=== PATIENT | male | born 1975 | race Hispanic/Latino ===

== ENCOUNTER 2017-10-12 00:37 | Inpatient (IN) | payer MEDICAID, OTHER ==
[2017-10-12 00:41] VITALS: BMI 22.2
--- NOTE | 2017-10-12 01:00 | ED PDOC ---
Arrival/HPI - General Chief Complaint: Medical Clearance Time Seen by Provider: 10/12/17 00:39 Historian: Patient - History of Present Illness Narrative History of Present Illness (Text): 10/12/17 00:54 This 41 yo male with a pmh depression, and substance abuse, presents to this ED by BLS from [facility] for admission to Psychiatric floor. Patient stated he was seen at [facility] for depression x 1 month. Patient admits having suicidal ideation since early today, without a plan. Patient denies hallucination, paranoia, HI, sob, cp, abdominal pain, urinary symptoms, or abnormal gait. Time/Duration: Other (see hpi) Context: Home Past Medical History - Provider Review Nursing Documentation Reviewed: Yes - Psychiatric Hx Substance Use: Yes Family/Social History - Physician Review Nursing Documentation Reviewed: Yes Family/Social History: Other (noncontributory) Smoking Status: y Hx Alcohol Use: Yes Hx Substance Use: Yes Substance used: Cocaine Allergies/Home Meds Allergies/Adverse Reactions: Allergies No Known Allergies Allergy (Verified 10/12/17 00:41) Review of Systems - Review of Systems Constitutional: Normal. absent: Fatigue, Weight Change, Fevers, Night Sweats Eyes: Normal ENT: Normal Respiratory: Normal Cardiovascular: Normal Gastrointestinal: Normal Genitourinary Male: Normal Musculoskeletal: Normal Skin: Normal Neurological: Normal Endocrine: Normal Hemo/Lymphatic: Normal Psychiatric: Depression, Suicidal Ideation Physical Exam Vital Signs Temp Pulse Resp BP Pulse Ox 10/12/17 00:42 98.0 F 87 18 130/80 98 Temperature: Afebrile Blood Pressure: Normal Pulse: Regular Respiratory Rate: Normal Appearance: Positive for: Well-Appearing, Non-Toxic, Comfortable Pain Distress: None Mental Status: Positive for: Alert and Oriented X 3 - Systems Exam Head: Present: Atraumatic, Normocephalic Pupils: Present: PERRL Extroacular Muscles: Present: EOMI Conjunctiva: Present: Normal Mouth: Present: Moist Mucous Membranes Neck: Present: Normal Range of Motion Respiratory/Chest: Present: Clear to Auscultation, Good Air Exchange. No: Respiratory Distress, Accessory Muscle Use Cardiovascular: Present: Regular Rate and Rhythm, Normal S1, S2. No: Murmurs Abdomen: Present: Normal Bowel Sounds. No: Tenderness, Distention, Peritoneal Signs Back: Present: Normal Inspection Upper Extremity: Present: Normal Inspection. No: Cyanosis, Edema Lower Extremity: Present: Normal Inspection. No: Edema Neurological: Present: GCS=15, CN II-XII Intact, Speech Normal Skin: Present: Warm, Dry, Normal Color. No: Rashes Psychiatric: Present: Alert, Oriented x 3, Depressed Mood, Suicidal Ideation Medical Decision Making ED Course and Treatment: 10/12/17 01:07 Dr. Riggs Psychiatry recommended to be transfer from [facility] to [facility] ED, to have patient admitted in the hospital for depression w/suicidal ideation. I reviewed copies of labs, and patient is medically clear for admission. Re-evaluation Time: 01:07 Reassessment Condition: Re-examined, Improving,but remains with symptoms Disposition/Present on Arrival - Present on Arrival Any Indicators Present on Arrival: No History of DVT/PE: No History of Uncontrolled Diabetes: No Urinary Catheter: No History of Decub. Ulcer: No History Surgical Site Infection Following: None - Disposition Have Diagnosis and Disposition been Completed?: Yes Diagnosis: Depression with suicidal ideation Disposition: HOSPITALIZED Disposition Time: 01:09 Patient Plan: Admission Condition: STABLE
[2017-10-12 01:56] VITALS: O2SAT 99
[2017-10-12] MEDS ORDERED: Alum-Mag Hydrox-Simethicone Susp (30 mL) PO PRN (02:51)
[2017-10-12] MEDS ORDERED: Magnesium Hydroxide Susp 30 ml UD PO PRN (02:51)
--- NOTE | 2017-10-12 03:32 | PCM.BM ---
<Laurent Baptiste - Last Filed: 10/12/17 03:29> Treatment Plan Problems - Problems identified on initial assessmt Ineffective Coping Date Initiated: 10/12/17 Time Initiated: 03:30 Assessment reference: NA Status: Active Hopelessness/Helplessness Date Initiated: 10/12/17 Time Initiated: 03:30 Assessment reference: NA Status: Active Feelings of Worthlessness Date Initiated: 10/12/17 Time Initiated: 03:30 Assessment reference: NA Status: Active Social Isolation Date Initiated: 10/12/17 Time Initiated: 03:31 Assessment reference: NA Status: Active Altered Sleep Patterns Date Initiated: 10/12/17 Time Initiated: 03:31 Assessment reference: NA Status: Active Treatment assets and liabiliti Patient Assests: adapts well, cooperative, self-reliant, ADL independent, physically healthy, negotiates basic needs, cognitively intact Patient Liabilities: financial problems, poor support system, relationship conflicts, substance abuse - Milieu Protocol Maintain good personal hygiene: daily Encourage regular showers, daily Remind patient to perform daily oral care, daily Assist patient to perform ADL's Conduct patient checks and document Observation sheet: Q15 minutes Maintain personal safety: every shift Educate patient to report safety concerns to staff, every shift Monitor environment for contraband/sharps Medication safety: Monitor for expected outcome, potential side effects: every shift, Assess barriers to learning: every shift, Assess readiness for medication education: every shift Discharge/Continuing Care - Education Needs Education Needs: Patient Medication, Patient Diagnosis/Disease Process, Patient Coping Skills, Patient Community resources, Patient Activities of Daily Living, Patient Nutrition, Patient Health Practices/Safety, Patient Personal Hygiene/ Grooming, Patient Aftercare Safety Plan - Discharge Discharge Criteria: Tolerates medication w/o severe side effects, Free of Suicidal thoughts, Free of agitation, Normal sleep pattern, Ability to care for self <Ree Riggs - Last Filed: 10/13/17 05:16> - Diagnosis (1) Depression with suicidal ideation Status: Acute Interventions: group, milieu and supportive tx Paxil 10 mg HS for depression and anxiety. Will not restart Wellbutrin due to patient's alcohol dependency both of which increase patient's risk of seizure Trazodone 50 mg HS (2) Alcohol dependence Status: Acute Interventions: Ativan 1 mg po q8 for alcohol withdrawal, hold if SBP <100. To discuss option of naltrexone and rehab with patient to help with alcohol abstinence. 10/13/17 05:18 10/13/17 05:18 10/13/17 05:19 (3) Cocaine abuse Status: Acute Interventions: To discuss option of naltrexone and rehab with patient to help with substance dependency issues. 10/13/17 05:19 <Melia Chowdhury - Last Filed: 10/15/17 08:14> Family Contact Family involvement: Famliy/SO not involved Family contact: Patient declines to allow family contact at present
[2017-10-12 08:19] LABS: GLUCOSE,FASTING 107 mg/dL (65-110); HDL CHOLESTEROL 57 mg/dL (29-60)
[2017-10-12 08:30] LABS: LDL CHOLESTEROL 41 mg/dL (0-129)
--- NOTE | 2017-10-12 10:10 | CP.PCM.CON ---
<Valeria Bullock - Last Filed: 10/12/17 10:22> History of Present Illness - History of Present Illness History of Present Illness: Valeria Bullock, PGY1, Medicine Consult Note for Dr Leos: CC: depression, suicidal ideation 41 year old male with PMH hepatitis C, alcohol/tobacco abuse, former IV drug user, presents for depression for past month. States that he has been feeling low, decreased appetite/concentration. He also was having suicidal ideations with no plan. He has previously had such episodes in the past. Denies cp, sob, headache, fever, chills, cough, abdominal pain, diarrhea/constipation, leg swelling, orthopnea. 12 point ROS obtained and neg, except as noted per HPI. PMH: Hepatitis C (contracted thru IV drug use) PSH: denies All: NKA Family Hx: denies SH: drinks 6 packs of beer every other day for many years. Smokes cigarettes 1 ppd x 30 years. + smokes cocaines. Prior IV drug user. Unemployed currently, supports himself thru his mom/brother. Review of Systems - Review of Systems All systems: reviewed and no additional remarkable complaints except Review of Systems: as per hpi Past Patient History - Past Social History Smoking Status: y - CARDIAC Hx Cardiac Disorders: No - PULMONARY Hx Respiratory Disorders: No - NEUROLOGICAL Hx Neurological Disorder: No - HEENT Hx HEENT Problems: No - RENAL Hx Chronic Kidney Disease: No - ENDOCRINE/METABOLIC Hx Endocrine Disorders: No - HEMATOLOGICAL/ONCOLOGICAL Hx Blood Disorders: No - INTEGUMENTARY Hx Dermatological Problems: No - MUSCULOSKELETAL/RHEUMATOLOGICAL Hx Musculoskeletal Disorders: No - GASTROINTESTINAL Hx Gastrointestinal Disorders: No - GENITOURINARY/GYNECOLOGICAL Hx Genitourinary Disorders: No - PSYCHIATRIC Hx Depression: Yes Hx Substance Use: Yes (Cocaine) - SURGICAL HISTORY Hx Surgeries: No - ANESTHESIA Hx Anesthesia: No Meds Allergies/Adverse Reactions: Allergies Allergy/AdvReac Type Severity Reaction Status Date / Time No Known Allergies Allergy Verified 10/12/17 02:56 - Medications Medications: Current Medications Acetaminophen (Tylenol 325mg Tab) 650 mg PO Q6H PRN PRN Reason: Pain, Mild (1-3) Al Hydrox/Mg Hydrox/Simethicone (Maalox Plus 30 Ml) 30 ml PO DAILY PRN PRN Reason: Upset Stomach Magnesium Hydroxide (Milk Of Magnesia) 30 ml PO DAILY PRN PRN Reason: Constipation Physical Exam - Constitutional Appears: Non-toxic, No Acute Distress - Head Exam Head Exam: ATRAUMATIC, NORMOCEPHALIC - Eye Exam Eye Exam: EOMI, PERRL. absent: Conjunctival injection, Nystagmus, Scleral icterus Pupil Exam: NORMAL ACCOMODATION, PERRL. absent: Fixed, Irregular, Unequal - ENT Exam ENT Exam: Mucous Membranes Moist - Neck Exam Neck exam: Positive for: Full Rom - Respiratory Exam Respiratory Exam: Clear to Auscultation Bilateral, NORMAL BREATHING PATTERN. absent: Accessory Muscle Use, Chest Wall Tenderness, Rales, Rhonchi, Wheezes, Stridor - Cardiovascular Exam Cardiovascular Exam: RRR, +S1, +S2. absent: Systolic Murmur - GI/Abdominal Exam GI & Abdominal Exam: Normal Bowel Sounds, Soft. absent: Diminished Bowel Sounds , Guarding, Hyperactive Bowel Sounds, Organomegaly, Rebound, Rigid, Tenderness - Extremities Exam Extremities exam: Positive for: normal inspection. Negative for: calf tenderness, pedal edema - Back Exam Back exam: NORMAL INSPECTION - Neurological Exam Neurological exam: Alert, Oriented x3 - Psychiatric Exam Psychiatric exam: Normal Affect, Normal Mood - Skin Skin Exam: Dry, Normal Color, Warm Results - Vital Signs Recent Vital Signs: Last Vital Signs Temp 97.6 F 10/12/17 02:05 Pulse 83 10/12/17 02:05 Resp 18 10/12/17 03:00 BP 136/95 H 10/12/17 02:05 Pulse Ox 99 10/12/17 01:55 - Labs Labs: Laboratory Results - last 24 hr 10/12/17 10/12/17 07:00 07:00 Fasting Glucose 107 Triglycerides 44 Cholesterol 114 L LDL Cholesterol Direct 41 HDL Cholesterol 57 TSH 3rd Generation 3.17 Assessment & Plan - Assessment and Plan (Free Text) Assessment: 41 year old male with PMH Hepatitis C, presents to [facility] for depression, suicidal ideation. Vitals stable, CBC, CMP, TSH reviewed. AST/ALT mildly elevated at 75/ 96 (from likely hepatitis C). UA neg for infection. UDS neg and etoh level low. Pt medically stable, can proceed with psychiatric management. Discussed with Dr Leos. - Date & Time Date: 10/12/17 Time: 10:10 <Vee Leos - Last Filed: 10/12/17 13:16> Meds - Medications Medications: Current Medications Acetaminophen (Tylenol 325mg Tab) 650 mg PO Q6H PRN PRN Reason: Pain, Mild (1-3) Al Hydrox/Mg Hydrox/Simethicone (Maalox Plus 30 Ml) 30 ml PO DAILY PRN PRN Reason: Upset Stomach Lorazepam (Ativan) 1 mg PO Q8 JOSE PRN Reason: Protocol Last Admin: 10/12/17 13:01 Dose: 1 mg Magnesium Hydroxide (Milk Of Magnesia) 30 ml PO DAILY PRN PRN Reason: Constipation Paroxetine HCl (Paxil) 10 mg PO HS JOSE Trazodone HCl (Desyrel) 50 mg PO HS JOSE Results - Vital Signs Recent Vital Signs: Last Vital Signs Temp 97.6 F 10/12/17 02:05 Pulse 83 10/12/17 02:05 Resp 18 10/12/17 03:00 BP 136/95 H 10/12/17 02:05 Pulse Ox 99 10/12/17 01:55 - Labs Labs: Laboratory Results - last 24 hr 10/12/17 10/12/17 10/12/17 07:00 07:00 07:00 Fasting Glucose 107 Triglycerides 44 Cholesterol 114 L LDL Cholesterol Direct 41 HDL Cholesterol 57 TSH 3rd Generation 3.17 RPR Nonreactive Attending/Attestation - Attestation I have personally seen and examined this patient.: Yes I have fully participated in the care of the patient.: Yes I have reviewed all pertinent clinical information: Yes Notes (Text): 10/12/17 13:12 Patient was seen and examined with medical technologist prn. Agreed with assessment and plan. 41 yrs old male with PMH of alcohol abuse, depression, drug abuse and Hepc is admitted with depression and suicidal ideation. Patient is stable at his bas line.We will sign off. Please call us back if any question. Issue of ongoing alcohol and drug abuse was discussed in detail . Management plan was discussed in detail with patient. Education was provided.
[2017-10-12] MEDS ORDERED: Potassium Chloride 10 mEq ER Tab PO STA (10:21)
--- NOTE | 2017-10-12 11:14 | PCM.PSYCH ---
Initial Psychiatric Evaluation - Initial Psychiatric Evaluation Type of Admission: Voluntary Chief Complaint (in patient's own words): depression History of Present Illness and Precipitating Events: Patient is a single 41 yo WM with history of depression, alcohol dependency (> 20 years), cocaine abuse, no reported prior psychiatric admissions, noncompliant with medications Wellbutrin and Trazodone x2 months, who was transferred from [facility] after he presented there requesting a psychiatric evaluation for depression. [facility] records indicate that patient has been depressed because of his continued alcohol and cocaine use, likely foreclosure of family home, lack of employment, uncles diagnosis of cancer, noncompliance with medications and conflict with family members about his lifestyle. I met with patient at bedside. His grooming is fair and he presents as alert and oriented x3. Affect is fairly reactive and responses are relevant to questioning. Patient confirms above aforementioned stressors. Endorses low mood , hopelessness, poor sleep, low energy, low frustration tolerance and anhedonia. Patient generally drinks 6 pack of beer daily however [facility] records indicate that he reported 1-2 pints of whiskey . His last use was reported as a week ago however [facility] records indicate he reported his last use was 2 days ago (10/10/17). Patient also reported his last cocaine use was a couple days ago. He tries to drink and use cocaine as much as his finances will allow. Patient indicates that he tried to kill himself a month ago by cutting his wrists. These were superficial cuts. This provider requested that PES clinician obtain more collateral from family members. Mother was called and she indicated that patient has been expressing suicidal thoughts. She feels his main stressors are their pending eviction and uncle's diagnosis of throat cancer. PSYCHIATRIC HISTORY Patient denies prior psychiatric admissions. Reports one suicide attempt by superficially cutting his wrists a month ago. He reports that he was in treatment with a psychiatrist in [place]. Indicates that he was prescribed Wellbutrin and Trazodone but ran out of medications about 2 months ago. He told nursing that he was also prescribed Xanax. SOCIAL HISTORY Born and raised in [place]. Single. No children. 11th grade education. He is unemployed and living with 73 yo mother and 47 yo brother. He reports having a drinking problem for >20 years. Reports multiple admissions to [facility] for alcohol dependency and benzo use, most recently 2013. Denies withdrawal seizures but admits to hx of withdrawal hallucinations and tremors. Patient reports using cocaine x9 years, uses sporadically when he has the funds. Patient reports current tobacco use, about a pack a day. Morbidity and mortality risks of continued tobacco use were reviewed with patient. Patient refused a nicotine patch when offered to him. Current Medications: Active Medications Generic Name Dose Route Start Last Admin Trade Name Freq PRN Reason Stop Dose Admin Acetaminophen 650 mg 10/12/17 02:51 Tylenol 325mg Tab PO Q6H PRN Pain, Mild (1-3) Al Hydrox/Mg Hydrox/Simethicone 30 ml 10/12/17 02:51 Maalox Plus 30 Ml PO DAILY PRN Upset Stomach Magnesium Hydroxide 30 ml 10/12/17 02:51 Milk Of Magnesia PO DAILY PRN Constipation Past Psychiatric History - Past Psychiatric History Pertinent Medical Hx (Current Medical&Sleep Prob, Allergies): Allergies Allergy/AdvReac Type Severity Reaction Status Date / Time No Known Allergies Allergy Verified 10/12/17 02:56 No Known Home Med 10/12/17 Mental Status Examination - Personal Presentation Personal Presentation: Looks stated age - Affect Affect: Constricted - Motor Activity Motor Activity: Calm - Reliability in Providing Information Reliability in Providing Information: Fair (There is some inconsistency in patient's history) - Speech Speech: Organized - Mood Mood: Depressed, Anxious - Formal Thought Process Formal Thought Process: No Impairment, Other (Some statements are inconsistent and contradictory when compared to [facility] and nursing report) - Obsessions/Compulsions Obsessions: No Compulsions: No - Cognitive Functions Orientation: Person, Place, Situation Sensorium: Alert Attention/Concentration: Attentive Estimate of Intelligence: Average Judgement: Imparied, as evidence by: Poor judgement - Risk Risk: Suicidal, Withdrawal, Diminished functioning DSM 5 DX - DSM 5 DSM 5 Diagnosis: Mood Disorder NOS Alcohol use Disorder, Severe Cocaine use Disorder, mild-moderate History of Benzo dependency (2014 rehab) Substance induced mood disorder Substance induced anxiety disorder r/o Major depression, Severe Alcohol withdrawal - Recommended/Plan of Treatment Treatment Recommendations and Plan of Treatment: * group, milieu and supportive tx * Paxil 10 mg HS for depression and anxiety. * Will not restart Wellbutrin due to patient's alcohol dependency both of which increase patient's risk of seizure * Trazodone 50 mg HS * Ativan 1 mg po q8 for alcohol withdrawal, hold if SBP <100. To discuss option of naltrexone with patient to help with alcohol abstinence. * Appreciate f/u by Dr. Bullock (PGY-1)/Dr. Leos: Pt medically stable, can proceed with psychiatric management. * Vitals reviewed and noted below: 10/12/17 02:05 Temperature 97.6 F Pulse Rate 83 Respiratory 18 Rate Blood Pressure 136/95 H [facility] 10/11/17 Chemistry 14 wnl except of K+=3.5L, Cr=0.7L, AST/ALT 75H/96H 10/11/17 WBC, Hgb/Hct, PLTS wnl 10/11/17 UDS negative, BAL<10 [facility]S 10/12/17 10/12/17 07:00 07:00 Fasting Glucose 107 Triglycerides 44 Cholesterol 114 L LDL Cholesterol Direct 41 HDL Cholesterol 57 TSH 3rd Generation 3.17 - Smoking Cessation Smoking Cessation Initiated: Yes
--- NOTE | 2017-10-13 10:45 | PCM.PYCHPN ---
Psychiatric Progress Note - Psychiatric Progress Note Patient seen today, length of contact: 25 min Patient Chief Complaint: "better" Problems Identified/Issues Discussed: Patient's Reaction to Hospitalization: Patient is a single 41 yo WM with history of depression, alcohol dependency (> 20 years), cocaine abuse, no reported prior psychiatric admissions, noncompliant with medications Wellbutrin and Trazodone x2 months, who was transferred from [facility] after he presented there requesting a psychiatric evaluation for depression. [facility] records indicate that patient has been depressed because of his continued alcohol and cocaine use, likely foreclosure of family home, lack of employment, uncles diagnosis of cancer, noncompliance with medications and conflict with family members about his lifestyle. I met with patient at bedside. His grooming is fair and he presents as alert and oriented x3. Affect is fairly reactive and responses are relevant to questioning. Patient confirms above aforementioned stressors. Endorses low mood , hopelessness, poor sleep, low energy, low frustration tolerance and anhedonia. Patient generally drinks 6 pack of beer daily however [facility] records indicate that he reported 1-2 pints of whiskey . His last use was reported as a week ago however [facility] records indicate he reported his last use was 2 days ago (10/10/17). Patient also reported his last cocaine use was a couple days ago. He tries to drink and use cocaine as much as his finances will allow. Patient indicates that he tried to kill himself a month ago by cutting his wrists. These were superficial cuts. This provider requested that PES clinician obtain more collateral from family members. Mother was called and she indicated that patient has been expressing suicidal thoughts. She feels his main stressors are their pending eviction and uncle's diagnosis of throat cancer. PSYCHIATRIC HISTORY Patient denies prior psychiatric admissions. Reports one suicide attempt by superficially cutting his wrists a month ago. He reports that he was in treatment with a psychiatrist in [place]. Indicates that he was prescribed Wellbutrin and Trazodone but ran out of medications about 2 months ago. He told nursing that he was also prescribed Xanax. SOCIAL HISTORY Born and raised in [place]. Single. No children. 11th grade education. He is unemployed and living with 73 yo mother and 47 yo brother. He reports having a drinking problem for >20 years. Reports multiple admissions to [facility] for alcohol dependency and benzo use, most recently 2013. Denies withdrawal seizures but admits to hx of withdrawal hallucinations and tremors. Patient reports using cocaine x9 years, uses sporadically when he has the funds. Patient reports current tobacco use, about a pack a day. Morbidity and mortality risks of continued tobacco use were reviewed with patient. Patient refused a nicotine patch when offered to him. PROGRESS NOTE 10/13/17 I met with patient at bedside. His grooming is fair and he presents as alert and oriented x3. Affect is fairly reactive and responses are relevant to questioning. He seems brighter today and reports that he is feeling better. Slept well last night. Patient is coherent with goal directed responses. He denies perceptual disturbance and there is no evidence of a thought disorder. Patient is tolerating his medications and denies any new discomfort, pain or tremors. Staff notes reviewed. They indicate that he has been calm and cooperative. Generally stayed in his room yesterday but did come out for a snack. Not really interacting with any peers yet. There were no behavioral issues over the weekend. Diagnostic Results: Mood Disorder NOS Alcohol use Disorder, Severe Cocaine use Disorder, mild-moderate History of Benzo dependency (2014 rehab) Substance induced mood disorder Substance induced anxiety disorder r/o Major depression, Severe Alcohol withdrawal Mental Status Examination - Cognitive Function Orientation: Person, Place, Situation Attention: WNL Concentration: WNL Association: WNL - Mood Mood: Depressed (better), Anxious - Affect Affect: Constricted (more reactive) - Speech Speech: Appropriate - Formal Thought Process Formal Thought Process: No Impairment, Other (Some statements are inconsistent and contradictory when compared to [facility] and nursing report) - Suicidal Ideation Suicidal Ideation: No - Homicidal Ideation Homicidal Ideation: No Goal/Treatment Plan - Goal/Treatment Plan Progress Toward Problem(s) and Goals/Treatment Plan: * group, milieu and supportive tx * Paxil 10 mg HS for depression and anxiety. * Will not restart Wellbutrin due to patient's alcohol dependency both of which increase patient's risk of seizure * Trazodone 50 mg HS * Ativan 1 mg po q8 for alcohol withdrawal, hold if SBP <100. To discuss option of naltrexone with patient to help with alcohol abstinence. * Appreciate f/u by Dr. Bullock (PGY-1)/Dr. Leos: Pt medically stable at baseline, signed off case * Vitals reviewed and noted below: 10/13/17 07:50 Temperature 98.4 F Pulse Rate 95 H Respiratory 20 Rate Blood Pressure 133/80 [facility] 10/11/17 Chemistry 14 wnl except of K+=3.5L, Cr=0.7L, AST/ALT 75H/96H 10/11/17 WBC, Hgb/Hct, PLTS wnl 10/11/17 UDS negative, BAL<10 [facility] 10/12/17 10/12/17 07:00 07:00 Fasting Glucose 107 Triglycerides 44 Cholesterol 114 L LDL Cholesterol Direct 41 HDL Cholesterol 57 TSH 3rd Generation 3.17
--- NOTE | 2017-10-14 16:11 | PCM.PYCHPN ---
Psychiatric Progress Note - Psychiatric Progress Note Patient seen today, length of contact: 30min Patient Chief Complaint: "I was not doing well, my friend advised me to come to the hospital" Problems Identified/Issues Discussed: Suicide/ homicide prevention, past psychiatric h/o, current psychiatric symptoms , medical problems, risk/benefits and alternatives of medications, medications compliance, coping strategies, substance abuse h/o, relapse prevention, importance of follow up with psychiatrist and therapist, discharge plan. Medical Problems: pt relatively healthy Diagnostic Results: Lab Results 10/12/17 07:00: Fasting Glucose 107, Triglycerides 44, Cholesterol 114 L, LDL Cholesterol Direct 41, HDL Cholesterol 57 10/12/17 07:00: RPR Nonreactive 10/12/17 07:00: TSH 3rd Generation 3.17 Vital Signs Temp Pulse Resp BP Pulse Ox 10/14/17 07:39 98.0 F 80 20 108/74 10/13/17 22:21 60 10/13/17 22:20 102 H 115/83 10/13/17 07:50 98.4 F 95 H 20 133/80 10/12/17 15:55 98.4 F 85 16 121/64 10/12/17 03:00 18 10/12/17 02:05 97.6 F 83 18 136/95 H 10/12/17 01:55 18 99 10/12/17 00:42 98.0 F 87 18 130/80 98 DSM 5 Symptoms Update: As per assessment: Patient is a single 41 yo WM with history of depression, alcohol dependency (> 20 years), cocaine abuse, no reported prior psychiatric admissions, noncompliant with medications Wellbutrin and Trazodone x2 months, who was transferred from [facility] after he presented there requesting a psychiatric evaluation for depression. [facility], [place] records indicate that patient has been depressed because of his continued alcohol and cocaine use, likely foreclosure of family home, lack of employment, uncles diagnosis of cancer, noncompliance with medications and conflict with family members about his lifestyle. as per nursing report over the weekend pt did not have any behavioral issues, compliant with medications, no signs of agitation or aggression. pt was seen today at the treatment team meeting, hygiene was acceptable, pt looks older than chronological age, said that he was stressed out because of his living situation and his uncle was dx with throat cancer. pt was inconsistent with his depressive symptoms as well as suicidal ideation. pt said he tried to cut his wrists about a month ago, then said he did not cut it, no visible scratches, no scars. pt then said he has two suicidal attempts, then changed it to only one, it is ?. pt denied v/a/t hallucinations, denied paranoid ideation, pt does not appear to be psychotic. pt tolerates meds well, no side effects observed or reported, AIMS 0, no EPS. no withdrawal symptoms. Diagnostic Results: Mood Disorder NOS Alcohol use Disorder, Severe Cocaine use Disorder, mild-moderate History of Benzo dependency (2014 rehab) Substance induced mood disorder Substance induced anxiety disorder r/o Major depression, Severe Alcohol withdrawal Medication Change: Yes (ativan decreased) Medical Record Reviewed: Yes Consults ordered or reviewed: medical consult appreciated Mental Status Examination - Cognitive Function Orientation: Person, Place, Situation Memory: Intact Attention: Poor Concentration: Poor Association: WNL Fund of Knowledge: Poor - Mood Mood: Depressed ("I feel depressed"), Anxious - Affect Affect: Constricted (but reactive, mood congruent) - Speech Speech: Appropriate - Formal Thought Process Formal Thought Process: No Impairment, Other (Some statements are inconsistent and contradictory when compared to [facility] and nursing report) - Suicidal Ideation Suicidal Ideation: No - Homicidal Ideation Homicidal Ideation: No Goal/Treatment Plan - Goal/Treatment Plan Need for Continued Stay: Remain at risks for inpatient hospitalization, Severe depression anxiety, Discharge may exacerbated symptoms Progress Toward Problem(s) and Goals/Treatment Plan: group, milieu and supportive tx Paxil 10 mg HS for depression and anxiety. Will not restart Wellbutrin due to patient's alcohol dependency both of which increase patient's risk of seizure Trazodone 100 mg HS for depression and insomnia Ativan will be decreased to 1mg po bid To discuss option of naltrexone with patient to help with alcohol abstinence. MVI, thiamine and folic acid SW evaluation for inpatient rehab medical consult appreciated Family involvement Follow up on labs Will monitor closely Pt was educated about risk/benefits and alternatives of medications, coping strategies (safety plan, suicide prevention), relapse prevention, importance of follow up with psychiatrist and therapist, stay away from drugs/alcohol/smoking Estimated Date of D/C: 10/18/17
[2017-10-15] MEDS: Multivitamin Therapeutic Tab PO SCH (08:45)
--- NOTE | 2017-10-15 17:42 | PCM.PYCHPN ---
Psychiatric Progress Note - Psychiatric Progress Note Patient seen today, length of contact: 30min Patient Chief Complaint: "I am willing to go to [facility] rehab" Problems Identified/Issues Discussed: Suicide/ homicide prevention, past psychiatric h/o, current psychiatric symptoms , medical problems, risk/benefits and alternatives of medications, medications compliance, coping strategies, substance abuse h/o, relapse prevention, importance of follow up with psychiatrist and therapist, discharge plan. Medical Problems: pt relatively healthy Diagnostic Results: Lab Results 10/12/17 07:00: Fasting Glucose 107, Triglycerides 44, Cholesterol 114 L, LDL Cholesterol Direct 41, HDL Cholesterol 57 10/12/17 07:00: RPR Nonreactive 10/12/17 07:00: TSH 3rd Generation 3.17 Vital Signs Temp Pulse Resp BP Pulse Ox 10/14/17 07:39 98.0 F 80 20 108/74 10/13/17 22:21 60 10/13/17 22:20 102 H 115/83 10/13/17 07:50 98.4 F 95 H 20 133/80 10/12/17 15:55 98.4 F 85 16 121/64 10/12/17 03:00 18 10/12/17 02:05 97.6 F 83 18 136/95 H 10/12/17 01:55 18 99 10/12/17 00:42 98.0 F 87 18 130/80 98 DSM 5 Symptoms Update: Patient is a single 41 yo WM with history of depression, alcohol dependency (> 20 years), cocaine abuse, no reported prior psychiatric admissions, noncompliant with medications Wellbutrin and Trazodone x2 months, who was transferred from [facility] after he presented there requesting a psychiatric evaluation for depression. [facility] records indicate that patient has been depressed because of his continued alcohol and cocaine use, likely foreclosure of family home, lack of employment, uncles diagnosis of cancer, noncompliance with medications and conflict with family members about his lifestyle. pt is compliant with medications, no signs of agitation or aggression. pt was seen today next to the nursing station, said that he feels "little better ", pt said that he is willing to go to the [facility] rehab. contracted for safety, denied any thoughts of harming self or others now. pt denied v/a/t hallucinations, denied paranoid ideation, pt does not appear to be psychotic. pt tolerates meds well, no side effects observed or reported, AIMS 0, no EPS. no withdrawal symptoms. Diagnostic Results: Mood Disorder NOS Alcohol use Disorder, Severe Cocaine use Disorder, mild-moderate History of Benzo dependency (2014 rehab) Substance induced mood disorder Substance induced anxiety disorder r/o Major depression, Severe Alcohol withdrawal Medication Change: Yes (ativan decreased) Medical Record Reviewed: Yes Consults ordered or reviewed: medical consult appreciated Mental Status Examination - Cognitive Function Orientation: Person, Place, Situation Memory: Intact Attention: Poor Concentration: Poor Association: WNL Fund of Knowledge: Poor - Mood Mood: Depressed ("I feel depressed"), Anxious - Affect Affect: Constricted (but reactive, mood congruent) - Speech Speech: Appropriate - Formal Thought Process Formal Thought Process: No Impairment, Other (Some statements are inconsistent and contradictory when compared to [facility] and nursing report) - Suicidal Ideation Suicidal Ideation: No - Homicidal Ideation Homicidal Ideation: No Goal/Treatment Plan - Goal/Treatment Plan Need for Continued Stay: Remain at risks for inpatient hospitalization, Severe depression anxiety, Discharge may exacerbated symptoms Progress Toward Problem(s) and Goals/Treatment Plan: group, milieu and supportive tx Paxil 10 mg HS for depression and anxiety. Trazodone 100 mg HS for depression and insomnia Ativan will be decreased to 0.5mg po bid To discuss option of naltrexone with patient to help with alcohol abstinence. MVI, thiamine and folic acid SW evaluation for inpatient rehab medical consult appreciated Family involvement Follow up on labs Will monitor closely Pt was educated about risk/benefits and alternatives of medications, coping strategies (safety plan, suicide prevention), relapse prevention, importance of follow up with psychiatrist and therapist, stay away from drugs/alcohol/smoking Estimated Date of D/C: 10/18/17
[2017-10-16 07:14] VITALS: RESP 20
[2017-10-16] MEDS: Multivitamin Therapeutic Tab PO SCH (08:50)
--- NOTE | 2017-10-16 14:44 | PCM.PYCHPN ---
Psychiatric Progress Note - Psychiatric Progress Note Patient seen today, length of contact: 30min Patient Chief Complaint: "I am still depressed" Problems Identified/Issues Discussed: Suicide/ homicide prevention, past psychiatric h/o, current psychiatric symptoms , medical problems, risk/benefits and alternatives of medications, medications compliance, coping strategies, substance abuse h/o, relapse prevention, importance of follow up with psychiatrist and therapist, discharge plan. Medical Problems: pt relatively healthy Diagnostic Results: Lab Results 10/12/17 07:00: Fasting Glucose 107, Triglycerides 44, Cholesterol 114 L, LDL Cholesterol Direct 41, HDL Cholesterol 57 10/12/17 07:00: RPR Nonreactive 10/12/17 07:00: TSH 3rd Generation 3.17 Vital Signs Temp Pulse Resp BP Pulse Ox 10/14/17 07:39 98.0 F 80 20 108/74 10/13/17 22:21 60 10/13/17 22:20 102 H 115/83 10/13/17 07:50 98.4 F 95 H 20 133/80 10/12/17 15:55 98.4 F 85 16 121/64 10/12/17 03:00 18 10/12/17 02:05 97.6 F 83 18 136/95 H 10/12/17 01:55 18 99 10/12/17 00:42 98.0 F 87 18 130/80 98 DSM 5 Symptoms Update: Patient is a single 41 yo WM with history of depression, alcohol dependency (> 20 years), cocaine abuse, no reported prior psychiatric admissions, noncompliant with medications Wellbutrin and Trazodone x2 months, who was transferred from [facility] after he presented there requesting a psychiatric evaluation for depression. [facility] records indicate that patient has been depressed because of his continued alcohol and cocaine use, likely foreclosure of family home, lack of employment, uncles diagnosis of cancer, noncompliance with medications and conflict with family members about his lifestyle. pt is compliant with medications, no signs of agitation or aggression. pt was seen today in his room, pt said that he still feels depressed "On a scale from 0to 5, I am 4", pt willing to go to inpatient rehab. contracted for safety, denied any thoughts of harming self or others now. pt denied v/a/t hallucinations, denied paranoid ideation, pt does not appear to be psychotic. pt tolerates meds well, no side effects observed or reported, AIMS 0, no EPS. no withdrawal symptoms. Diagnostic Results: Mood Disorder NOS Alcohol use Disorder, Severe Cocaine use Disorder, mild-moderate History of Benzo dependency (2014 rehab) Substance induced mood disorder Substance induced anxiety disorder r/o Major depression, Severe Alcohol withdrawal Medication Change: Yes (paxil increased) Medical Record Reviewed: Yes Consults ordered or reviewed: medical consult appreciated Mental Status Examination - Cognitive Function Orientation: Person, Place, Situation Memory: Intact Attention: Poor Concentration: Poor Association: WNL Fund of Knowledge: Poor - Mood Mood: Depressed ("I feel depressed"), Anxious - Affect Affect: Constricted (but reactive, mood congruent) - Speech Speech: Appropriate - Formal Thought Process Formal Thought Process: No Impairment - Suicidal Ideation Suicidal Ideation: No - Homicidal Ideation Homicidal Ideation: No Goal/Treatment Plan - Goal/Treatment Plan Need for Continued Stay: Remain at risks for inpatient hospitalization, Severe depression anxiety, Discharge may exacerbated symptoms Progress Toward Problem(s) and Goals/Treatment Plan: group, milieu and supportive tx Paxil 20 mg HS for depression and anxiety. Trazodone 100 mg HS for depression and insomnia Ativan will be decreased to 0.5mg po bid To discuss option of naltrexone with patient to help with alcohol abstinence. MVI, thiamine and folic acid SW evaluation for inpatient rehab medical consult appreciated Family involvement Follow up on labs Will monitor closely Pt was educated about risk/benefits and alternatives of medications, coping strategies (safety plan, suicide prevention), relapse prevention, importance of follow up with psychiatrist and therapist, stay away from drugs/alcohol/smoking Estimated Date of D/C: 10/18/17
[2017-10-17] MEDS: Multivitamin Therapeutic Tab PO SCH (08:11)
--- NOTE | 2017-10-17 15:01 | PCM.PYCHPN ---
Psychiatric Progress Note - Psychiatric Progress Note Patient seen today, length of contact: 30min Patient Chief Complaint: "I feel more optimistic" Problems Identified/Issues Discussed: Suicide/ homicide prevention, past psychiatric h/o, current psychiatric symptoms , medical problems, risk/benefits and alternatives of medications, medications compliance, coping strategies, substance abuse h/o, relapse prevention, importance of follow up with psychiatrist and therapist, discharge plan. Medical Problems: pt relatively healthy Diagnostic Results: Lab Results 10/12/17 07:00: Fasting Glucose 107, Triglycerides 44, Cholesterol 114 L, LDL Cholesterol Direct 41, HDL Cholesterol 57 10/12/17 07:00: RPR Nonreactive 10/12/17 07:00: TSH 3rd Generation 3.17 Vital Signs Temp Pulse Resp BP Pulse Ox 10/14/17 07:39 98.0 F 80 20 108/74 10/13/17 22:21 60 10/13/17 22:20 102 H 115/83 10/13/17 07:50 98.4 F 95 H 20 133/80 10/12/17 15:55 98.4 F 85 16 121/64 10/12/17 03:00 18 10/12/17 02:05 97.6 F 83 18 136/95 H 10/12/17 01:55 18 99 10/12/17 00:42 98.0 F 87 18 130/80 98 DSM 5 Symptoms Update: Patient is a single 41 yo WM with history of depression, alcohol dependency (> 20 years), cocaine abuse, no reported prior psychiatric admissions, noncompliant with medications Wellbutrin and Trazodone x2 months, who was transferred from [facility] after he presented there requesting a psychiatric evaluation for depression. [facility] records indicate that patient has been depressed because of his continued alcohol and cocaine use, likely foreclosure of family home, lack of employment, uncles diagnosis of cancer, noncompliance with medications and conflict with family members about his lifestyle. pt is compliant with medications, no signs of agitation or aggression. patient might be accepted to the rehabilitation failure psychotropic medications are not the loud, patient is willing to stop trazodone as well as Paxil, willing to take Benadryl only, patient said that he was providing inconsistent stories, said that he is suicidal but he was not actually suicidal he wanted to get into the psychiatric inpatient unit. He was advised to provide correct information in the future. patient seems to be more hopeful. pt denied v/a/t hallucinations, denied paranoid ideation, pt does not appear to be psychotic. pt tolerates meds well, no side effects observed or reported, AIMS 0, no EPS. no withdrawal symptoms. Diagnostic Results: Mood Disorder NOS Alcohol use Disorder, Severe Cocaine use Disorder, mild-moderate History of Benzo dependency (2014 rehab) Substance induced mood disorder Substance induced anxiety disorder r/o Major depression, Severe Alcohol withdrawal Medication Change: Yes (psychotropic medications discontinued) Medical Record Reviewed: Yes Consults ordered or reviewed: medical consult appreciated Mental Status Examination - Cognitive Function Orientation: Person, Place, Situation Memory: Intact Attention: Poor Concentration: Poor Association: WNL Fund of Knowledge: Poor - Mood Mood: Depressed ("I am more optimistic") - Affect Affect: Constricted (but reactive, mood congruent) - Speech Speech: Appropriate - Formal Thought Process Formal Thought Process: No Impairment - Suicidal Ideation Suicidal Ideation: No - Homicidal Ideation Homicidal Ideation: No Goal/Treatment Plan - Goal/Treatment Plan Need for Continued Stay: Remain at risks for inpatient hospitalization, Severe depression anxiety, Discharge may exacerbated symptoms Progress Toward Problem(s) and Goals/Treatment Plan: group, milieu and supportive tx Paxil and trazodone discontinued, Benadryl 50 at the nighttime as needed for insomnia MVI, thiamine and folic acid SW evaluation for inpatient rehab medical consult appreciated Family involvement Follow up on labs Will monitor closely Pt was educated about risk/benefits and alternatives of medications, coping strategies (safety plan, suicide prevention), relapse prevention, importance of follow up with psychiatrist and therapist, stay away from drugs/alcohol/smoking Estimated Date of D/C: 10/18/17
[2017-10-18 07:16] VITALS: BP 83/52; PULSE 64; TEMP 97.9
[2017-10-18] MEDS: Multivitamin Therapeutic Tab PO SCH (09:19)
--- NOTE | 2017-10-18 16:02 | PCM.PYCHDC ---
Mental Status Examination - Mental Status Examination Orientation: Person, Place, Situation, Time Memory: Intact Mood: Neutral Affect: Broad Attention: WNL Concentration: WNL Association: WNL Fund of Knowledge: WNL Formal Thought Process: No Impairment Description of patient's judgement and insight: Pt has improved insight into mental and medical illness, pt was compliant with medications and unit rules and regulations, pt was going to groups, was calm, cooperative, socially appropriate, no behavioral incidents, no agitation, no aggression. Psychotic Thoughts and Behaviors: Pt denied v/a/t hallucinations, denied paranoid ideations, pt does not appear to be psychotic, and thought process is goal directed. Suicidal Ideation: No Current Homicidal Ideation?: No Plan: pt adamantly denied thoughts of harming self or others denied intent or plan. Discharge Summary - Discharge Note Reason for Hospitalization: depression and possible suicidal ideation Psychiatric History (includes Medical, Family, Personal Hx): reported h/o MDD Laboratory Data: Lab Results 10/12/17 07:00: Fasting Glucose 107, Triglycerides 44, Cholesterol 114 L, LDL Cholesterol Direct 41, HDL Cholesterol 57 10/12/17 07:00: RPR Nonreactive 10/12/17 07:00: TSH 3rd Generation 3.17 Vital Signs Temp Pulse Resp BP Pulse Ox 10/18/17 07:15 97.9 F 64 20 83/52 L 10/17/17 15:00 97.6 F 76 20 103/69 10/17/17 07:06 97.6 F 70 20 95/67 L 10/16/17 16:46 88 101/88 10/16/17 07:15 97.8 F 75 20 99/68 L 10/16/17 07:14 97.7 F 73 20 124/86 10/15/17 17:20 75 101/66 10/15/17 08:46 100 H 122/74 10/15/17 06:48 98.2 F 69 16 85/54 L 10/14/17 16:00 80 103/62 10/14/17 07:39 98.0 F 80 20 108/74 10/13/17 22:21 60 10/13/17 22:20 102 H 115/83 10/13/17 07:50 98.4 F 95 H 20 133/80 10/12/17 15:55 98.4 F 85 16 121/64 10/12/17 03:00 18 10/12/17 02:05 97.6 F 83 18 136/95 H 10/12/17 01:55 18 99 10/12/17 00:42 98.0 F 87 18 130/80 98 Consultations:: List each consultation separately and include: 1. Reason for request. 2. Findings. 3. Follow-up Consultations: medical consult appreciated see notes for more detailed information Summary of Hospital Course include:: 1. Description of specific treatment plan utilized for patients during their course of treatmen. 2. Summarize the time- course for resolution of acute symptoms and/or regressed behaviors. 3. Describe issues identified and worked on during hospitalization. 4. Describe medication utilized. 5. Describe medical problems identified and treated. 6. Reassessment of suicide risk Summary of Hospital Course: Patient is a single 41 yo WM with history of depression, alcohol dependency (> 20 years), cocaine abuse, no reported prior psychiatric admissions, noncompliant with medications Wellbutrin and Trazodone x2 months, who was transferred from [facility] after he presented there requesting a psychiatric evaluation for depression. [facility] records indicate that patient has been depressed because of his continued alcohol and cocaine use, likely foreclosure of family home, lack of employment, uncles diagnosis of cancer, noncompliance with medications and conflict with family members about his lifestyle. at the time of initial evaluation pt had low mood, hopelessness, poor sleep, low energy, low frustration tolerance and anhedonia. Patient generally drinks 6 pack of beer daily however [facility] records indicate that he reported 1-2 pints of whiskey . His last use was reported as a week ago however [facility] records indicate he reported his last use was 2 days ago (10/10/17). Patient also reported his last cocaine use was a couple days ago. He tries to drink and use cocaine as much as his finances will allow. Patient indicates that he tried to kill himself a month ago by cutting his wrists. These were superficial cuts. (pt then said he lied in order to get admitted to the hospital). This provider requested that PES clinician obtain more collateral from family members. Mother was called and she indicated that patient has been expressing suicidal thoughts. She feels his main stressors are their pending eviction and uncle's diagnosis of throat cancer. PSYCHIATRIC HISTORY Patient denies prior psychiatric admissions. Reports one suicide attempt by superficially cutting his wrists a month ago. He reports that he was in treatment with a psychiatrist in [place]. Indicates that he was prescribed Wellbutrin and Trazodone but ran out of medications about 2 months ago. He told nursing that he was also prescribed Xanax. SOCIAL HISTORY Born and raised in [place]. Single. No children. 11th grade education. He is unemployed and living with 73 yo mother and 47 yo brother. He reports having a drinking problem for >20 years. Reports multiple admissions to [facility] for alcohol dependency and benzo use, most recently 2013. Denies withdrawal seizures but admits to of withdrawal hallucinations and tremors. Patient reports using cocaine x9 years, uses sporadically when he has the funds. Patient reports current tobacco use, about a pack a day. Morbidity and mortality risks of continued tobacco use were reviewed with patient. Patient refused a nicotine patch when offered to him. over the course of this hospitalization pt was initiated with antidepressant and medication for sleep when pt got to know that he will be accepted to inpatient rehab pt said he lied about his depression and suicidal ideation, as per rehab pt could not be on any psychotropic medications, pt gladly agreed to d/c antidepressants yesterday, slept well and had good mood and appetite. pt was on ativan tapering dose, no withdrawal symptoms, pt was weaned off multivitamines. thiamine, folic acid. At the time of the discharge pt denied been depressed, denied thoughts of harming self or others, denied psychotic symptoms, and pt does not appeared to be psychotic, denied been anxious, pt is not in imminent danger to self or others, will be going to alcohol rehab. information about follow up appointment , time and address provided to the pt, it is patient responsibility to follow up with outpatient clinic, PMD as well as specialists (see note for more detailed information). In case pt will need to obtain results of studies pending at discharge pt was provided with contact information of Psychiatric Inpatient unit [phone] as well as Medical Record Department [phone]. Nicotine patch was offered, pt declined Naltrexone treatment offered, but pt declined that offer Counseling about smoking and alcohol cessation provided AA meetings as well as smoking cessation treatment program information was provided by the pt was not on any meds Pt was educated about safety plan in case of worsening of symptoms or in case of suicidal or homicidal ideation call 911 or go to the nearest ER, also was educated to take meds as prescribed and stay away from drugs, pt verbalized understanding. - Diagnosis (1) Alcohol dependence Status: Acute - Final Diagnosis (DSM 5) Condition upon Discharge: STABLE DSM 5: malingering Disposition: HOME/ ROUTINE Follow-up Treatment Plan: At the time of the discharge pt denied been depressed, denied thoughts of harming self or others, denied psychotic symptoms, and pt does not appeared to be psychotic, denied been anxious, pt is not in imminent danger to self or others, will be going to alcohol rehab. information about follow up appointment , time and address provided to the pt, it is patient responsibility to follow up with outpatient clinic, PMD as well as specialists (see note for more detailed information). In case pt will need to obtain results of studies pending at discharge pt was provided with contact information of Psychiatric Inpatient unit [phone] as well as Medical Record Department [phone]. Nicotine patch was offered, pt declined Naltrexone treatment offered, but pt declined that offer Counseling about smoking and alcohol cessation provided AA meetings as well as smoking cessation treatment program information was provided by the pt was not on any meds as per rehab request. pt agreed Pt was educated about safety plan in case of worsening of symptoms or in case of suicidal or homicidal ideation call 911 or go to the nearest ER, also was educated to take meds as prescribed and stay away from drugs, pt verbalized understanding. - Smoking Cessation Smoking Cessation Medication prescribed: No Reason for not providing: pt refused - Antipsychotic Medications Pt discharged on 2 or more routine antipsychotic medications: No
== END 2017-10-18 11:02 | disposition home or self-care (01) | DRG 426 ==
LOC: ED 00:37 → ERH 01:09 → PSYC 02:00
PROVIDERS: ADMIT Psychiatry & Neurology Psychiatry; ATTEND Psychiatry & Neurology Psychiatry
DX: F32.9 Major depressive disorder, single episode, unspecified (principal); R45.851 Suicidal ideations; F14.14 Cocaine abuse with cocaine-induced mood disorder; F10.239 Alcohol dependence with withdrawal, unspecified; B19.20 Unspecified viral hepatitis C without hepatic coma; Z76.5 Malingerer [conscious simulation]; Z91.14 Patient's other noncompliance with medication regimen; F17.210 Nicotine dependence, cigarettes, uncomplicated; F41.9 Anxiety disorder, unspecified; G47.00 Insomnia, unspecified; Z56.0 Unemployment, unspecified